=== PATIENT | female | born 1940 | race American Indian/Alaskan Native ===

== ENCOUNTER 2017-02-08 09:17 | Emergency (ER) | payer MEDICARE ==
[2017-02-08 09:56] LABS: Basophils % (Auto) 0.6 % (0.0-1.8); Eosinophils % (Auto) 2.2 % (0.0-4.3); Hematocrit 30.2 % (30.3-42.9); Hemoglobin 10.2 gm/dl (10.1-14.3); Mean Corpuscular HGB Conc 34 % (30-34); Mean Corpuscular Hemoglobin 37 pg (28-32); Mean Corpuscular Volume 110 fl (79-97); Platelet Count 751 K/mm3 (140-440); Red Blood Count 2.74 M/mm3 (3.65-5.03); Red Cell Distribution Width 18.1 % (13.2-15.2); White Blood Count 4.7 K/mm3 (4.5-11.0)
--- NOTE | 2017-02-08 15:52 | Cat Scan Report ---
FINAL REPORT PROCEDURE: CT HEAD/BRAIN WO CON TECHNIQUE: Computerized tomography of the head was performed without contrast material. HISTORY: headache COMPARISON: No prior studies are available for comparison. FINDINGS: Skull and scalp: Normal. Paranasal sinuses: Normal. Ventricles and subarachnoid spaces: Normal. Cerebrum: No evidence of hemorrhage, acute infarction or mass . Cerebellum and brainstem: No evidence of hemorrhage, acute infarction or mass. Vasculature: Normal. Comments: None. IMPRESSION: There is no evidence of an acute intracranial process.
--- NOTE | 2017-02-08 17:17 | Emergency Department Report ---
ED General Adult HPI - General Chief complaint: Pain General Stated complaint: DIABETIC/HEADACHE/FOOT PAIN Time Seen by Provider: 02/08/17 14:32 Source: patient Mode of arrival: Ambulatory Limitations: No Limitations - History of Present Illness Initial comments: Patient states that she has elevated platelets. She is chronically taking hydroxyurea. She is under the care of a dietary server. She states that she had pain in the left side of her neck for the past few weeks. She was concerned that she might have a blood clot. She complained of some mild headache. She's had no nausea vomiting neck stiffness no focal neurological change or other symptoms. -: Gradual, week(s) Radiation: non-radiation Quality: aching Consistency: intermittent, now resolved Improves with: none Worsens with: none Associated Symptoms: denies other symptoms Treatments Prior to Arrival: none - Related Data Previous Rx's Medication Instructions Recorded Last Taken Type traMADol [Ultram] 50 mg PO Q6HR PRN #14 tablet 02/08/17 Unknown Rx Allergies Allergy/AdvReac Type Severity Reaction Status Date / Time No Known Allergies Allergy Unverified 02/08/17 09:25 ED Review of Systems ROS: Stated complaint: DIABETIC/HEADACHE/FOOT PAIN Other details as noted in HPI Constitutional: denies: chills, fever Eyes: denies: eye pain, eye discharge, vision change ENT: denies: ear pain, throat pain Respiratory: denies: cough, shortness of breath, wheezing Cardiovascular: denies: chest pain, palpitations Endocrine: no symptoms reported Gastrointestinal: denies: abdominal pain, nausea, diarrhea Genitourinary: denies: urgency, dysuria, discharge Musculoskeletal: denies: back pain, joint swelling, arthralgia Skin: denies: rash, lesions Neurological: denies: headache, weakness, paresthesias Psychiatric: denies: anxiety, depression Hematological/Lymphatic: denies: easy bleeding, easy bruising ED Past Medical Hx - Past Medical History Hx Diabetes: Yes Additional medical history: hypercholesterol, hx high platlets - Surgical History Past Surgical History?: No - Social History Smoking Status: Never Smoker Substance Use Type: None - Medications Home Medications: Home Medications Medication Instructions Recorded Confirmed Last Taken Type traMADol [Ultram] 50 mg PO Q6HR PRN #14 tablet 02/08/17 Unknown Rx ED Physical Exam - General Limitations: No Limitations General appearance: alert, in no apparent distress - Head Head exam: Present: atraumatic, normocephalic - Eye Eye exam: Present: normal appearance, PERRL, EOMI. Absent: scleral icterus - ENT ENT exam: Present: normal exam, mucous membranes moist - Neck Neck exam: Present: normal inspection, full ROM, other (carotids without bruit. Patient seems to be referring discomfort over her SCM area but is not currently tender.). Absent: tenderness, meningismus, lymphadenopathy, thyromegaly - Respiratory Respiratory exam: Present: normal lung sounds bilaterally. Absent: respiratory distress - Cardiovascular Cardiovascular Exam: Present: regular rate, normal rhythm. Absent: systolic murmur, diastolic murmur, rubs, gallop - GI/Abdominal GI/Abdominal exam: Present: soft, normal bowel sounds. Absent: distended, tenderness, guarding, rebound, rigid - Extremities Exam Extremities exam: Present: normal inspection - Back Exam Back exam: Present: normal inspection - Neurological Exam Neurological exam: Present: alert, oriented X3, CN II-XII intact. Absent: motor sensory deficit - Psychiatric Psychiatric exam: Present: normal affect, normal mood - Skin Skin exam: Present: warm, dry, intact, normal color. Absent: rash ED Course Vital Signs 02/08/17 02/08/17 02/08/17 09:25 11:51 11:52 Temperature 97.8 F Pulse Rate 90 Respiratory 16 Rate Blood Pressure 159/88 189/78 O2 Sat by Pulse 100 85 100 Oximetry 02/08/17 02/08/17 02/08/17 11:54 11:56 11:58 Temperature Pulse Rate 81 69 Respiratory 15 15 Rate Blood Pressure 189/78 189/78 189/78 O2 Sat by Pulse 100 99 99 Oximetry 02/08/17 02/08/17 02/08/17 12:00 12:02 12:04 Temperature Pulse Rate 67 64 70 Respiratory 16 16 15 Rate Blood Pressure 177/73 177/73 177/73 O2 Sat by Pulse 99 99 99 Oximetry 02/08/17 02/08/17 02/08/17 12:06 12:08 12:10 Temperature Pulse Rate 63 70 63 Respiratory 15 16 18 Rate Blood Pressure 177/73 177/73 177/73 O2 Sat by Pulse 99 98 96 Oximetry 02/08/17 02/08/17 02/08/17 12:12 12:14 12:16 Temperature Pulse Rate 62 64 63 Respiratory 16 15 15 Rate Blood Pressure 177/73 177/73 177/73 O2 Sat by Pulse 97 96 97 Oximetry 02/08/17 02/08/17 02/08/17 12:18 12:20 12:22 Temperature Pulse Rate 63 63 66 Respiratory 15 16 15 Rate Blood Pressure 177/73 177/73 177/73 O2 Sat by Pulse 97 96 97 Oximetry 02/08/17 02/08/17 02/08/17 12:24 12:26 12:28 Temperature Pulse Rate 66 65 66 Respiratory 15 16 15 Rate Blood Pressure 177/73 177/73 177/73 O2 Sat by Pulse 97 98 95 Oximetry 02/08/17 02/08/17 02/08/17 12:30 12:32 12:34 Temperature Pulse Rate 66 79 71 Respiratory 10 L 15 17 Rate Blood Pressure 161/73 161/73 161/73 O2 Sat by Pulse 98 98 98 Oximetry 02/08/17 02/08/17 02/08/17 12:36 12:38 12:40 Temperature Pulse Rate 69 70 66 Respiratory 15 16 15 Rate Blood Pressure 161/73 161/73 161/73 O2 Sat by Pulse 98 98 98 Oximetry 02/08/17 02/08/17 02/08/17 12:42 12:44 12:46 Temperature Pulse Rate 74 66 74 Respiratory 15 16 18 Rate Blood Pressure 161/73 161/73 161/73 O2 Sat by Pulse 100 98 97 Oximetry 02/08/17 02/08/17 02/08/17 12:48 12:50 12:52 Temperature Pulse Rate 68 68 73 Respiratory 14 14 14 Rate Blood Pressure 161/73 161/73 161/73 O2 Sat by Pulse 98 98 99 Oximetry 02/08/17 02/08/17 02/08/17 12:54 12:56 12:58 Temperature Pulse Rate 66 64 73 Respiratory 14 15 16 Rate Blood Pressure 161/73 161/73 161/73 O2 Sat by Pulse 97 97 97 Oximetry 02/08/17 02/08/17 02/08/17 13:00 13:01 13:02 Temperature Pulse Rate 68 70 70 Respiratory 19 19 16 Rate Blood Pressure 171/77 171/77 171/77 O2 Sat by Pulse 97 99 98 Oximetry 02/08/17 02/08/17 02/08/17 13:04 13:06 13:08 Temperature Pulse Rate 66 64 65 Respiratory 16 15 15 Rate Blood Pressure 171/77 171/77 171/77 O2 Sat by Pulse 97 99 97 Oximetry 02/08/17 02/08/17 02/08/17 13:10 13:12 13:14 Temperature Pulse Rate 67 64 67 Respiratory 16 12 16 Rate Blood Pressure 171/77 171/77 171/77 O2 Sat by Pulse 98 98 97 Oximetry 02/08/17 02/08/17 02/08/17 13:16 13:18 13:20 Temperature Pulse Rate 62 60 63 Respiratory 14 14 13 Rate Blood Pressure 171/77 171/77 171/77 O2 Sat by Pulse 98 97 97 Oximetry 02/08/17 02/08/17 02/08/17 13:22 13:24 13:26 Temperature Pulse Rate 66 63 71 Respiratory 14 16 17 Rate Blood Pressure 171/77 171/77 171/77 O2 Sat by Pulse 100 100 99 Oximetry 02/08/17 02/08/17 02/08/17 13:28 13:30 13:32 Temperature Pulse Rate 65 65 65 Respiratory 15 12 14 Rate Blood Pressure 171/77 146/71 146/71 O2 Sat by Pulse 98 100 99 Oximetry 02/08/17 02/08/17 02/08/17 13:34 13:36 13:38 Temperature Pulse Rate 82 69 77 Respiratory 16 15 17 Rate Blood Pressure 146/71 146/71 146/71 O2 Sat by Pulse 97 100 97 Oximetry 02/08/17 02/08/17 02/08/17 13:40 13:42 13:44 Temperature Pulse Rate 74 66 65 Respiratory 17 16 16 Rate Blood Pressure 146/71 146/71 146/71 O2 Sat by Pulse 98 99 98 Oximetry 02/08/17 02/08/17 02/08/17 13:46 13:48 13:50 Temperature Pulse Rate 70 65 78 Respiratory 18 16 15 Rate Blood Pressure 146/71 146/71 146/71 O2 Sat by Pulse 98 98 98 Oximetry 02/08/17 02/08/17 02/08/17 13:52 13:54 13:56 Temperature Pulse Rate 71 71 71 Respiratory 16 17 19 Rate Blood Pressure 146/71 146/71 146/71 O2 Sat by Pulse 99 98 98 Oximetry 02/08/17 02/08/17 02/08/17 13:58 14:00 14:02 Temperature Pulse Rate 85 70 70 Respiratory 13 18 16 Rate Blood Pressure 146/71 154/72 154/72 O2 Sat by Pulse 99 100 99 Oximetry 02/08/17 02/08/17 02/08/17 14:04 14:06 14:08 Temperature Pulse Rate 68 66 71 Respiratory 16 18 16 Rate Blood Pressure 154/72 154/72 146/71 O2 Sat by Pulse 99 98 100 Oximetry 02/08/17 02/08/17 02/08/17 14:10 14:12 14:14 Temperature Pulse Rate 70 70 74 Respiratory 17 17 17 Rate Blood Pressure 146/71 146/71 146/71 O2 Sat by Pulse 99 99 98 Oximetry 02/08/17 02/08/17 02/08/17 14:16 14:18 14:20 Temperature Pulse Rate 73 67 66 Respiratory 16 16 15 Rate Blood Pressure 146/71 146/71 146/71 O2 Sat by Pulse 99 99 98 Oximetry 02/08/17 02/08/17 02/08/17 14:22 14:24 14:26 Temperature Pulse Rate 76 72 68 Respiratory 15 17 16 Rate Blood Pressure 146/71 146/71 146/71 O2 Sat by Pulse 100 98 98 Oximetry 02/08/17 02/08/17 02/08/17 14:28 14:30 14:31 Temperature Pulse Rate 70 78 71 Respiratory 16 19 15 Rate Blood Pressure 146/71 146/71 140/64 O2 Sat by Pulse 99 99 100 Oximetry 02/08/17 02/08/17 02/08/17 14:32 14:34 14:36 Temperature Pulse Rate 69 75 68 Respiratory 17 15 20 Rate Blood Pressure 140/64 140/64 140/64 O2 Sat by Pulse 99 96 94 Oximetry 02/08/17 02/08/17 02/08/17 14:38 14:40 14:42 Temperature Pulse Rate 69 69 69 Respiratory 19 14 16 Rate Blood Pressure 140/64 140/64 140/64 O2 Sat by Pulse 96 96 96 Oximetry 02/08/17 02/08/17 02/08/17 14:44 14:46 14:48 Temperature Pulse Rate 72 73 72 Respiratory 17 17 18 Rate Blood Pressure 140/64 140/64 140/64 O2 Sat by Pulse 96 98 96 Oximetry 02/08/17 02/08/17 02/08/17 14:50 14:52 14:54 Temperature Pulse Rate 71 79 87 Respiratory 18 14 19 Rate Blood Pressure 140/64 140/64 140/64 O2 Sat by Pulse 95 99 97 Oximetry 02/08/17 02/08/17 02/08/17 14:56 14:58 15:00 Temperature Pulse Rate 82 76 74 Respiratory 15 21 18 Rate Blood Pressure 140/64 140/64 154/70 O2 Sat by Pulse 99 97 97 Oximetry 02/08/17 02/08/17 02/08/17 15:02 15:04 15:06 Temperature Pulse Rate 78 74 68 Respiratory 17 18 17 Rate Blood Pressure 154/70 154/70 154/70 O2 Sat by Pulse 96 100 97 Oximetry 02/08/17 02/08/17 02/08/17 15:08 15:10 15:12 Temperature Pulse Rate 71 69 67 Respiratory 12 18 16 Rate Blood Pressure 154/70 154/70 154/70 O2 Sat by Pulse 99 100 98 Oximetry 02/08/17 02/08/17 02/08/17 15:14 15:16 15:18 Temperature Pulse Rate 69 75 66 Respiratory 14 20 16 Rate Blood Pressure 154/70 154/70 154/70 O2 Sat by Pulse 99 98 98 Oximetry 02/08/17 02/08/17 02/08/17 15:20 15:22 15:24 Temperature Pulse Rate 66 74 68 Respiratory 16 16 13 Rate Blood Pressure 154/70 154/70 154/70 O2 Sat by Pulse 97 96 98 Oximetry 02/08/17 02/08/17 02/08/17 15:26 15:28 16:10 Temperature Pulse Rate 66 66 85 Respiratory 12 17 16 Rate Blood Pressure 154/70 154/70 154/70 O2 Sat by Pulse 97 98 99 Oximetry 02/08/17 02/08/17 02/08/17 16:30 16:38 16:40 Temperature Pulse Rate 71 82 76 Respiratory 20 19 16 Rate Blood Pressure 145/62 154/70 154/70 O2 Sat by Pulse 95 97 97 Oximetry 02/08/17 02/08/17 02/08/17 16:42 16:44 16:46 Temperature Pulse Rate 81 80 80 Respiratory 19 19 19 Rate Blood Pressure 154/70 154/70 154/70 O2 Sat by Pulse 98 99 95 Oximetry 02/08/17 02/08/17 02/08/17 16:48 16:50 16:52 Temperature Pulse Rate 74 68 68 Respiratory 17 17 18 Rate Blood Pressure 154/70 154/70 154/70 O2 Sat by Pulse 98 98 97 Oximetry 02/08/17 02/08/17 02/08/17 16:54 16:56 16:58 Temperature Pulse Rate 71 68 66 Respiratory 14 16 16 Rate Blood Pressure 154/70 154/70 154/70 O2 Sat by Pulse 97 97 97 Oximetry 02/08/17 02/08/17 02/08/17 17:00 17:02 17:04 Temperature Pulse Rate 66 67 67 Respiratory 17 18 17 Rate Blood Pressure 148/71 148/71 148/71 O2 Sat by Pulse 99 98 98 Oximetry 02/08/17 02/08/17 02/08/17 17:06 17:08 17:10 Temperature Pulse Rate 66 75 70 Respiratory 15 19 20 Rate Blood Pressure 148/71 148/71 148/71 O2 Sat by Pulse 99 97 97 Oximetry 02/08/17 02/08/17 02/08/17 17:12 17:14 17:16 Temperature Pulse Rate 75 79 79 Respiratory 14 17 16 Rate Blood Pressure 148/71 148/71 148/71 O2 Sat by Pulse 97 99 99 Oximetry 02/08/17 17:18 Temperature Pulse Rate 74 Respiratory 18 Rate Blood Pressure 148/71 O2 Sat by Pulse 97 Oximetry - Reevaluation(s) Reevaluation #1: The patient remains in no distress. She has no complaint of acute pain now. She is neurologically intact. Outpatient disposition as indicated. 02/08/17 17:28 ED Medical Decision Making - Lab Data Result diagrams: 02/08/17 09:31 Laboratory Results - last 24 hr 02/08/17 02/08/17 09:31 14:51 WBC 4.7 RBC 2.74 L Hgb 10.2 Hct 30.2 L MCV 110 H MCH 37 H MCHC 34 RDW 18.1 H Plt Count 751 H Lymph % (Auto) 29.8 Hill % (Auto) 5.7 Eos % (Auto) 2.2 Baso % (Auto) 0.6 Lymph # 1.4 Hill # 0.3 Eos # 0.1 Baso # 0.0 Seg Neutrophils % 61.7 Seg Neutrophils # 2.9 POC Glucose 97 - Medical Decision Making The patient has chronic and clinically benign neck pain. There is no indication of a thrombotic event. She is instructed to continue her aspirin and follow up with her dietary server. Critical care attestation.: If time is entered above; I have spent that time in minutes in the direct care of this critically ill patient, excluding procedure time. ED Disposition Clinical Impression: Thrombocytosis, Neck pain Disposition: TO HOME OR SELFCARE Is pt being admited?: No Does the pt Need Aspirin: No Condition: Stable Additional Instructions: Follow-up with your hematology doctor. Continue your aspirin. Rx as needed for discomfort. Return any acute change. Prescriptions: traMADol [Ultram] 50 mg PO Q6HR PRN #14 tablet PRN Reason: Pain Referrals: PRIMARY CARE, [Primary Care Provider] - 3-5 Days Time of Disposition: 17:35
[2017-02-08 17:20] VITALS: BP 148/71
== END 2017-02-08 17:44 | disposition home or self-care (01) ==
LOC: ED 09:17
DX: D47.3 Essential (hemorrhagic) thrombocythemia (principal); M54.2 Cervicalgia; E11.9 Type 2 diabetes mellitus without complications; E78.00 Pure hypercholesterolemia, unspecified
CPT/HCPCS: 36415; 70450; 82962; 85025; 99284